=== PATIENT | male | born 1980 | race Two or more races ===

== ENCOUNTER 2016-08-19 18:06 | Emergency (ER) | payer OTHER ==
[~2016-08-19] VITALS: Ht 170.2 cm; Wt 74.8 kg
[2016-08-19 18:10] VITALS: BP 126/83
--- NOTE | 2016-08-19 18:58 | Emergency Room Report ---
History of Present Illness General Chief Complaint: Lower Extremity Injury Source: Patient Present Illness HPI 36 YO male presents emergency department complaining of 6/10 in severity acute onset pain to the posterior right ankle. Patient states that he was at work " tumbling" and upon landing he felt a pop, his ankle gave out, and acute onset localized pain to the soft tissue of the right posterior ankle. Patient denies bony tenderness to palpation and he states pain is exacerbated upon standing or walking. Patient denies previous injury to the extremity. Patient states he took 3 Motrin prior to arrival. Denies numbness tingling or loss of sensation or gross motor movements of the extremities, incontinence of bowel or bladder. Denies CP, Palpitations, LOC, AMS, dizziness, Changes in Vision, Sensation, paresthesias, or a sudden severe headache. Allergies: Coded Allergies: No Known Allergies (Unverified , 08/19/16) Patient History Past Medical History: see triage record Past Surgical History: none Pertinent Family History: none Reviewed Nursing Documentation: PMH: Agreed, PSxH: Agreed Nursing Documentation-PMH Past Medical History: No Stated History Review of Systems All Other Systems: negative except mentioned in HPI Physical Exam Vital Signs Date Time Temp Pulse Resp B/P Pulse Ox O2 Delivery O2 Flow Rate FiO2 08/19/16 18:10 98.4 55 16 126/83 100 Room Air Sp02 EP Interpretation: reviewed, normal General Appearance: no apparent distress, alert, GCS 15, non-toxic Head: normocephalic, atraumatic Eyes: bilateral eye PERRL, bilateral eye normal inspection ENT: hearing grossly normal, normal pharynx, no angioedema, normal voice Neck: full range of motion, supple/symm/no masses Respiratory: lungs clear, normal breath sounds, speaking full sentences Cardiovascular #1: regular rate, rhythm, no edema Cardiovascular #2: 2+ dorsalis pedis (R), 2+ dorsalis pedis (L) Musculoskeletal: back normal, normal range of motion, tender - TTP to the achilles tendon of the right leg, there is posterior calf tenderness, no bony ttp, swelling noted to the soft tissue, and pt. has negative foot movement with calf squeeze. Neurologic: alert, oriented x3, responsive, motor strength/tone normal, sensory intact, speech normal Psychiatric: judgement/insight normal, memory normal, mood/affect normal Skin: normal color, no rash, warm/dry, well hydrated Medical Decision Making PA Attestation Dr. Oleary is my supervising Physician whom patient management has been discussed with. Diagnostic Impression: Primary Impression: Achilles rupture, right Qualified Codes: S86.011A - Strain of right Achilles tendon, initial encounter ER Course 36 YO male presents emergency department complaining of 6/10 in severity acute onset pain to the posterior right ankle. Patient states that he was at work " tumbling" and upon landing he felt a pop, his ankle gave out, and acute onset localized pain to the soft tissue of the right posterior ankle. Patient denies bony tenderness to palpation and he states pain is exacerbated upon standing or walking. Patient denies previous injury to the extremity. Patient states he took 3 Motrin prior to arrival. Denies numbness tingling or loss of sensation or gross motor movements of the extremities, incontinence of bowel or bladder. Denies CP, Palpitations, LOC, AMS, dizziness, Changes in Vision, Sensation, paresthesias, or a sudden severe headache. Ddx considered but are not limited to Fracture, dislocation, contusion, Sprain/ Strain/Spasm, Epidural abscess, Neoplastic mets. Vital signs: are WNL, pt. is afebrile H&PE are most consistent with either partial or complete rupture of the right Achilles tendon. most likely complete due to negative movement with calf squeeze exam. ORDERS: - X-ray Right ankle 3 Views - negative for fx, Dislocation, or significant soft tissue injury, per preliminary read in ED by Dr. Oleary ED INTERVENTIONS: - Short Leg Posterior Splint applied to the right leg by mosaic technician. Pt. remains neurovascularly intact. -Pt is provided with crutches. -D/w pt. that his injury will require orthopedic follow up and surgical evaluation. pt. is provided a copy of his imaging. Pt. verbalizes his understanding and agreement with treatment plan. DISCHARGE: At this time pt. is stable for d/c to home. Will provide printed patient care instructions, and any necessary prescriptions. Care plan and follow up instructions have been discussed with the patient prior to discharge. Last Vital Signs Date Time Temp Pulse Resp B/P Pulse Ox O2 Delivery O2 Flow Rate FiO2 08/19/16 18:10 98.4 55 16 126/83 100 Room Air Disposition: HOME, SELF-CARE Condition: Stable Scripts Ibuprofen* (MOTRIN*) 600 Mg Tablet 600 MG ORAL THREE TIMES A DAY, #30 TAB 0 Refills Prov: Hali Awad 08/19/16 Hydrocodone Bit/Acetaminophen 5-325* (NORCO 5-325 TABLET*) 1 Each Tablet 1 TAB ORAL Q6HR Y for For Pain, #10 TAB Prov: Hali Awad 08/19/16 Departure Forms: Return to Work Return to Work Date: Aug 23, 2016 Work Restrictions: No Heavy Lifting, No Prolonged Standing, Desk Work Only Other Restrictions: light duty x 2 weeks. Return to Full Activity: Sep 06, 2016 Patient Instructions: Complete Achilles Tendon Rupture, Partial (Incomplete) Achilles Tendon Rupture Additional Instructions: Take medications as directed. Follow up with [facility] in 3-5 days, will need surgical evaluation Return sooner to ED if new symptoms occur, or current symptoms become worse. Do not drink alcohol, drive, or operate heavy machinery while taking [place] as this may cause drowsiness. - Please note that this Emergency Department Report was dictated using [employer] service consultant technology software, occasionally this can lead to erroneous entry secondary to interpretation by the dictation equipment. Hali Awad Aug 19, 2016 18:58
[2016-08-19] MEDS ORDERED: NORCO 5-325 TA1 EAC1 ORAL (19:38)
[2016-08-19] MEDS ORDERED: IBUPROFEN600 MG ORAL (19:38)
[2016-08-19 19:47] VITALS: BP 121/79
--- NOTE | 2016-08-20 10:17 | Diagnostic Imaging Report ---
Indication: PAIN Technique: 3 views of the right ankle Comparison: none Findings: No acute fractures. No dislocations. Joint spaces are preserved Impression: Negative
== END 2016-08-19 19:52 | disposition home or self-care (01) ==
LOC: EMR 19:30
DX: S86.011A Strain of right Achilles tendon, initial encounter (principal); X58.XXXA Exposure to other specified factors, initial encounter; Y93.9 Activity, unspecified; Y99.0 Civilian activity done for income or pay
CPT/HCPCS: 29515; 99284